=== PATIENT | male | born 1950 | race Caucasian/White ===

== ENCOUNTER → 2021-10-04 08:24 | Outpatient (CLI) | payer OTHER, SELFPAY ==
--- NOTE | 2021-10-04 | DI.NM.S_ITS ---
PROCEDURE: NM BONE SCAN WHOLE BODY RADIOPHARMACEUTICAL: 20.4 mCi Tc-99m MDP IV. INDICATIONS: Bilateral anterior knee pain TECHNIQUE: Delayed whole-body scintigrams were obtained approximately 3-4 hours after intravenous injection of radiotracer. Anterior and posterior views were acquired from vertex to feet. Additional left and right oblique views of the knees were obtained. COMPARISON: [facility] [place], [place], XR KNEE ARTHRITIC SERIES , 09/26/2021, 15:42. FINDINGS: Bilateral total knee arthroplasties. Symmetrically increased uptake around knee prosthesis are most likely postsurgical in nature. No lesions are identified in skull, sternum, clavicles, scapulae, ribs, bony pelvis, and visualized shafts of the long bones. There are foci of increased uptake in cervical, thoracic and lumbar spine with distribution indistinguishable from degenerative disc and facet disease; early metastasis to spine could be obscured by degenerative changes. There are foci of increased periarticular activity in multiple peripheral joints, likely secondary to degenerative/arthritic changes. There are 2 kidneys, normal in size and position. There is normal soft tissue uptake. IMPRESSION: 1. Bilateral knee arthroplasties. Foci of low-level increased uptake around knee prostheses are most likely secondary to nonspecific postsurgical change. No definitive scintigraphic findings to suggest prosthesis loosening or infection. 2. 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 Dictated by: Jeffrey Damon M.D. on 10/04/2021 at 13:58 Approved by: Jeffrey Damon M.D. on 10/04/2021 at 14:02
== END ==
PROVIDERS: PCP Physician Assistant Medical; Referring Provider Orthopaedic Surgery; Visit Provider Orthopaedic Surgery
DX: M25.561 Pain in right knee (principal); M25.562 Pain in left knee; M47.9 Spondylosis, unspecified; Z96.653 Presence of artificial knee joint, bilateral
CPT/HCPCS: 78306; A9503